=== PATIENT | female | born 2005 | race Caucasian/White ===

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

== ENCOUNTER 2024-09-28 16:07 | Emergency (ER) | payer BC ==
[~2024-09-28] VITALS: Ht 172.7 cm; Wt 104.0 kg
[~2024-09-28 16:07] MED LIST: PRED10TA PO
[2024-09-28 16:35] VITALS: BP 164/109; PULSE 73; RESP 16; O2SAT 100
--- NOTE | 2024-09-28 16:43 | Physician Documentation ---
History of Present Illness Chief Complaint: Abdominal Pain Stated Complaint: STOMACH/BACK PAIN HPI Patient is seen today with complaints of right-sided flank pain that she states has migrated to her right upper quadrant throughout the course of today. Patient denies any urinary symptoms or dysuria or urinary urgency or frequency currently. Patient states her LMP was about 2-1/2 weeks ago and denies being . Patient denies any chest pain or shortness of breath or nausea, vomiting, diarrhea. Patient states her pain originally started as low back pain that developed into a type of right-sided flank pain and now right upper quadrant pain. Patient denies any history of cholecystitis or family history of cholecystitis. She has no other concern or complaint at this time. Medication Reconciliation Allergies: Coded Allergies: No Known Allergies (Unverified , 09/28/24) Scheduled Prednisone (Prednisone), 0 PO DAILY Past Medical History Past Medical History: No Pertinent History Past Surgical History: noncontributory Lives with: Family Lives In: Home Occupation: student Physical Exam Vital Signs: Temperature: 98.2, Source: Temporal, Heart Rate: 73, Respiratory Rate: 16, BP: 164/109, Pulse Oximetry: 100, Weight: 104.000 Oxygen Flow Rate: 0 Physical Exam General: Awake and Alert, no acute distress. HEENT: Conjunctiva pink, Sclera clear, Mucus Membranes moist. Neck: Supple without masses and tenderness. Resp: Unlabored. Lungs clear to auscultation bilaterally. Heart: Regular Rate and rhythm, normal S1 and S2 without murmur, rub or gallop. Abdomen: Patient on exam does have significant tenderness to palpation of the right upper quadrant without masses, without rebounding or guarding, abdomen is soft, nondistended, negative Matthews's sign. Extremities: No cyanosis,clubbing or edema. Skin: Warm and Dry. Medical Decision Making Findings 19 y/o patient with RUQ abdominal pain, consistent with acute cholecystitis. Abdominal exam without peritoneal signs. No evidence of acute abdomen at this ti me. Pain is currently resolved. Well appearing. Given RUQ US findings patient likely has signs of acute cholecystitis with no signs of cholangitis. It is not indicated at this time as there is no elevated white count patient is hemodynamically stable. Less likely to represent acute pancreatitis (neg lipase), PUD (including gastric perforation), acute infectious processes (pneumonia, hepatitis, pyelonephritis), atypical appendicitis, vascular catastrophe, bowel obstruction or viscus perforation, or acute coronary syndrome. Ultrasound confirms presence of cholelithiasis and sonographic positive Matthews sign. Presentation not consistent with other acute, emergent causes of abdominal pain at this time. We will send patient home with instructions to follow up with her primary care provider for additional diagnostics and to schedule outpatient surgery. Differential Dx:Considerations: Include: AAA, -Complete, - Incomplete, -Inevitable, -Missed, -Threatened, Abruptio placentae, Angina/DE, Aortic dissection, Appendicitis, Bowel obstruction, Cholangitis, Cholelithasis, Constipation, Diverticular disease, Esophageal rupture, Esophagitis, Gastritis/PUD, Gastroenteritis, GI hemorrhage, Hernia, Hepatitis, Inflammatory BD, Ischemic bowel, Ovarian cyst/torsion, Pancreatitis, PID, Porphyria, Trauma, intraabdominal, Urinary obstruction, Urinary tract infection, Urolithiasis, Other Departure Disposition: HOME / SELF CARE / HOMELESS Impression: Primary Impression: Abdominal pain Additional Impression: Cholelithiasis without obstruction Condition: Stable Discharge Instructions: Abdominal Pain (Nonspecific), Cholelithiasis Additional Instructions: Ultrasound confirms presence of cholelithiasis and sonographic positive Matthews sign. Presentation not consistent with other acute, emergent causes of abdominal pain at this time. We will send patient home with instructions to follow up with her primary care provider for additional diagnostics and to schedule outpatient surgery. Please return to the emergency department if you have any worsening or recurrent symptoms or any additional concerning symptoms present i.e. fevers patient will nausea vomiting or any other concerning symptoms. Patient tries to avoid dairy or fatty foods until you follow up with her primary care provider. A bland non-fatty nondairy diet is recommended. Referrals: NO PRIMARY CARE PROVIDER (PCP) Education Educated: Patient Educated regarding: diagnosis, treatment, need for follow up Signature Scribe Signature: A Attestation: Scribed for Marlee Hopper by HOUSTON Tolentino . 09/28/24 20:02 OSMAR MEDINA Sep 28, 2024 16:43 MARLEE HOPPER Sep 28, 2024 20:02
[2024-09-28 17:08] LABS: MEAN PLATELET VOLUME 8.0 FL (7.4-10.4); RED CELL DISTRIBUTION WIDTH 13.5 % (11.5-14.5)
[2024-09-28 17:26] LABS: CREATININE 1.00 MG/DL (0.40-0.90); TOTAL CARBON DIOXIDE 26.8 MMOL/L (24-32); eCRCL 91 ML/MIN; eGFR 71 ML/MIN
--- NOTE | 2024-09-28 17:35 | RADIOLOGY REPORT ---
ULTRASOUND ABDOMEN, LIMITED RIGHT UPPER QUADRANT: REASON FOR EXAM: abd pain RUQ TECHNIQUE: Real-time sector scans in the transverse and longitudinal planes were obtained through th e right upper quadrant of the abdomen. FINDINGS: The liver is of normal size and contour. There is hepatopetal flow in the portal vein. Th ere is no intrahepatic nor extrahepatic biliary ductal dilatation. The common bile duct measures 2 m m. There are stones within the gallbladder measuring up to 1.0 cm. There is a stone in the gallbladd er neck. There is no gallbladder wall thickening nor pericholecystic fluid. There is a sonographic M urphy's sign. The pancreas is largely obscured by bowel gas. The visualized portion of the pancreas is unremarkable . The right kidney measures 11.0 cm. No hydronephrosis or nephrolithiasis is identified. There is no evidence of right renal mass or cyst. The visualized portions of the abdominal aorta demonstrate no evidence of aneurysmal dilatation. The visualized inferior vena cava is unremarkable. There is no free fluid identified in the right upper quadrant. IMPRESSION: Cholelithiasis. There is a sonographic fay's sign. Correlate clinically for possible acute cholecy stitis.
[2024-09-28 20:04] VITALS: TEMP 98.2
== END 2024-09-28 20:12 | disposition home or self-care (01) ==
LOC: ER 16:08
DX: K80.20 Calculus of gallbladder without cholecystitis without obstruction (principal); Z79.899 Other long term (current) drug therapy
CPT/HCPCS: 36415; 76700; 80053; 83690; 85025; 99284